=== PATIENT | male | born 1965 | race Caucasian/White ===

== ENCOUNTER → 2021-09-07 | Outpatient (CLI) | payer BC ==
[~2021-09-07] VITALS: Ht 177.8 cm; Wt 138.3 kg
[~2021-09-07] MED LIST: ONDA-144 PO; TRAM-297 PO
== END | disposition home or self-care (01) ==
LOC: Rad HDHVI 13:41
PROVIDERS: ATTEND Internal Medicine Cardiovascular Disease
DX: R07.9 Chest pain, unspecified (principal); I49.9 Cardiac arrhythmia, unspecified; R20.9 Unspecified disturbances of skin sensation; R53.83 Other fatigue
CPT/HCPCS: 78452; 82962; 93017; 96374; A9500

== ENCOUNTER 2021-10-01 17:20 | Emergency (ER) | payer BC, MEDICAID ==
[~2021-10-01] VITALS: Ht 175.3 cm; Wt 139.3 kg
[2021-10-01] MEDS ORDERED: SODIUM CHLORIDE 0.9% 1,000 ML IVB ONE (18:00)
[2021-10-01] MEDS ORDERED: KETOROLAC TROMETH 30 MG/ML 1ML VIAL IV ONE (18:00)
[2021-10-01] MEDS ORDERED: ONDANSETRON HCL 4 MG/2 ML VIAL IV ONE (18:00)
[2021-10-01 18:32] LABS: Basophils # (auto) 0.1 10 ^3/uL (0-0.2); Basophils % (auto) 0.4 % (0.0-2.0); Eosinophils # (auto) 0.2 10 ^3/uL (0-0.8); Eosinophils % (auto) 1.2 % (0.0-7.0); Hematocrit 45.1 % (41.0-53.0); Hemoglobin 15.3 g/dL (13.5-17.5); Lymphocytes # (auto) 1.9 10 ^3/uL (0.4-5.4); Lymphocytes % (auto) 12.7 % (10.0-50.0); Mean Corpuscular Hemoglobin 29.2 pg (28.0-32.0); Mean Corpuscular Hgb Conc. 33.9 g/dL (32.0-36.0); Mean Corpuscular Volume 86.1 fL (80.0-100.0); Monocytes # (auto) 0.6 10 ^3/uL (0-1.3); Monocytes % (auto) 4.4 % (0.0-12.0); Neutrophils % (auto) 81.3 % (37.0-80.0); Red Blood Cells 5.24 10^6/uL (4.5-5.90); Red Cell Distribution Width 14.1 % (11.8-14.3); White Blood Cell 14.8 10^3/uL (4.4-10.8)
[2021-10-01 18:54] LABS: Potassium 3.9 mmol/L (3.5-5.1)
[2021-10-01 19:00] LABS: Albumin 3.4 g/dL (3.4-5.0); BUN/Creatinine Ratio 11.4; Bilirubin, Total 0.3 mg/dL (0.2-1.0); Calcium 9.6 mg/dL (8.5-10.1); Total Protein 8.4 g/dL (6.4-8.2)
[2021-10-01 21:18] LABS: Urine Bacteria NONE SEEN /hpf (None Seen); Urine Blood 2+ /uL (Negative); Urine Mucus FEW (None Seen); Urine Specific Gravity 1.014 (1.001-1.035); Urine WBC 2 /hpf (0 - 3)
[2021-10-01] MEDS ORDERED: TRAM-297 PO (21:24)
[2021-10-01] MEDS ORDERED: ONDA-144 PO (21:24)
[2021-10-01 21:30] VITALS: BP 148/84
== END 2021-10-01 21:48 | disposition home or self-care (01) ==
LOC: ER 17:20
DX: N20.0 Calculus of kidney (principal); E11.9 Type 2 diabetes mellitus without complications; I10 Essential (primary) hypertension; E78.5 Hyperlipidemia, unspecified; Z88.6 Allergy status to analgesic agent; Z88.8 Allergy status to other drugs, medicaments and biological substances
CPT/HCPCS: 36415; 74176; 80053; 81001; 82150; 83690; 85025; 93005; 96361; 96374; 96375; 99285; J1885; J2405; J7030